=== PATIENT | female | born 1975 | race African-American/Black ===

== ENCOUNTER 2019-05-01 13:59 | Emergency (ER) | payer MEDICAID, OTHER ==
[~2019-05-01] VITALS: Ht 162.6 cm; Wt 58.5 kg
[2019-05-01 14:13] VITALS: BP 141/100
[2019-05-01] MEDS ORDERED: TETRACAINE HCL 0.5% OPTH(EYE) SOLN 4ML LEFTEYE ONE (17:15)
[2019-05-01] MEDS ORDERED: FLUORESCEIN SOD 1 MG TEST STRIP LEFTEYE ONE (17:15)
== END 2019-05-01 17:32 | disposition home or self-care (01) ==
LOC: ER 13:59
DX: T15.12XA Foreign body in conjunctival sac, left eye, initial encounter (principal); Z88.6 Allergy status to analgesic agent; X58.XXXA Exposure to other specified factors, initial encounter; Y93.89 Activity, other specified; Y92.89 Other specified places as the place of occurrence of the external cause; Y99.8 Other external cause status
CPT/HCPCS: 65205